=== PATIENT | male | born 1995 | race Caucasian/White ===

== ENCOUNTER 2020-07-31 18:06 | Emergency (ER) | payer BC ==
[2020-07-31 18:11] VITALS: TEMP 98
[2020-07-31] MEDS ORDERED: SODIUM CHLORIDE 0.9% 1,000 ML IV STA (19:20)
[2020-07-31] MEDS ORDERED: ONDANSETRON 4 MG/2 ML VIAL IVP STA (19:22)
--- NOTE | 2020-07-31 19:36 | ED ---
General Adult HPI - General Chief complaint: Abdominal Pain Stated complaint: post Covid chest discomfort Time Seen by Provider: 07/31/20 19:10 Source: patient Mode of arrival: ambulatory Limitations: no limitations - History of Present Illness Initial comments: 25 year-old female patient presents to the emergency department for evaluation of right upper quadrant abdominal pain. Pain has been intermittent over the last year or so. Cramping pain that radiates to back and right shoulder. Associated nausea, no vomiting. Has alternating constipation and diarrhea. States lately the pain is much worse. Was treated for muscle spasm to the right flank in [facility] this year. Reports frequent urination, no hematuria, no dysuria. No previous abdominal surgeries. Not currently taking any medications. - Related Data Previous Rx's Medication Instructions Recorded Ibuprofen [Motrin] 600 mg PO Q8HR PRN #30 tab 07/31/20 Ondansetron [Zofran ODT] 4 mg PO Q8HR PRN #20 tab 07/31/20 Allergies Allergy/AdvReac Type Severity Reaction Status Date / Time No Known Allergies Allergy Verified 07/31/20 18:08 Review of Systems ROS Statement: Those systems with pertinent positive or pertinent negative responses have been documented in the HPI. ROS Other: All systems not noted in ROS Statement are negative. Past Medical History Past Medical History: No Reported History History of Any Multi-Drug Resistant Organisms: None Reported Past Surgical History: Orthopedic Surgery Past Psychological History: No Psychological Hx Reported Smoking Status: Never smoker Past Alcohol Use History: Occasional Past Drug Use History: None Reported General Exam Limitations: no limitations General appearance: alert, in no apparent distress, other (This is a well-developed, well-nourished adult male patient in no acute distress. Vital signs upon presentation are temperature 98.0F, pulse 81, respirations 18, blood pressure 165/92, pulse ox 98% on room air.) Eye exam: Present: normal appearance, PERRL, EOMI. Absent: scleral icterus, conjunctival injection, periorbital swelling ENT exam: Present: normal exam, normal oropharynx, mucous membranes moist Respiratory exam: Present: normal lung sounds bilaterally. Absent: respiratory distress, wheezes, rales, rhonchi, stridor Cardiovascular Exam: Present: regular rate, normal rhythm, normal heart sounds. Absent: systolic murmur, diastolic murmur, rubs, gallop, clicks GI/Abdominal exam: Present: soft, tenderness (Mid epigastric, right upper quadrant), normal bowel sounds. Absent: distended, guarding, rebound, rigid Neurological exam: Present: alert, oriented X3, CN II-XII intact Psychiatric exam: Present: normal affect, normal mood Skin exam: Present: warm, dry, intact, normal color. Absent: rash Course Vital Signs 07/31/20 07/31/20 18:09 21:35 Temperature 98.0 F Pulse Rate 81 66 Respiratory 18 16 Rate Blood Pressure 165/92 154/83 O2 Sat by Pulse 98 99 Oximetry Medical Decision Making - Medical Decision Making 24-year-old male patient presents to the emergency department today for evaluation of right upper quadrant abdominal pain is been intermittent over the last year worsening recently. He does report nausea and bloating. Physical examination did reveal midepigastric and right upper quadrant tenderness. No CVA tenderness. Labs reviewed and are unremarkable. Ultrasound of the right upper quadrant was obtained and did show evidence for slightly distended gallbladder with a slightly thickened wall. He is afebrile. Tolerating oral intake. He'll be discharged follow-up the primary care physician and general surgeon for further evaluation as soon as possible. Return parameters were discussed in detail. He verbalizes understanding and agrees this plan. Case di scussed with my attending Dr. Villagomez. - Lab Data Result diagrams: 07/31/20 19:35 07/31/20 19:35 Lab Results 07/31/20 07/31/20 07/31/20 Range/Units 19:35 19:35 19:35 WBC 8.0 (3.8-10.6) k/uL RBC 5.60 (4.30-5.90) m/uL Hgb 16.8 (13.0-17.5) gm/dL Hct 49.2 (39.0-53.0) % MCV 87.9 (80.0-100.0) fL MCH 30.0 (25.0-35.0) pg MCHC 34.1 (31.0-37.0) g/dL RDW 12.7 (11.5-15.5) % Plt Count 322 (150-450) k/uL MPV 7.4 Neutrophils % (Manual) 44 % Lymphocytes % (Manual) 47 % Monocytes % (Manual) 7 % Eosinophils % (Manual) 2 % Neutrophils # (Manual) 3.52 (1.3-7.7) k/uL Lymphocytes # (Manual) 3.76 (1.0-4.8) k/uL Monocytes # (Manual) 0.56 (0-1.0) k/uL Eosinophils # (Manual) 0.16 (0-0.7) k/uL Nucleated RBCs 0 (0-0) /100 WBC Manual Slide Review Performed Reactive Lymphocytes Present Sodium 141 (137-145) mmol/L Potassium 4.3 (3.5-5.1) mmol/L Chloride 103 (98-107) mmol/L Carbon Dioxide 30 (22-30) mmol/L Anion Gap 8 mmol/L BUN 10 (9-20) mg/dL Creatinine 0.97 (0.66-1.25) mg/dL Est GFR (CKD-EPI)AfAm >90 (>60 ml/min/1.73 sqM) Est GFR (CKD-EPI)NonAf >90 (>60 ml/min/1.73 sqM) Glucose 92 (74-99) mg/dL Calcium 10.4 H (8.4-10.2) mg/dL Total Bilirubin 0.9 (0.2-1.3) mg/dL AST 29 (17-59) U/L ALT 21 (4-49) U/L Alkaline Phosphatase 63 (38-126) U/L Total Protein 8.1 (6.3-8.2) g/dL Albumin 5.1 H (3.5-5.0) g/dL Lipase 88 (23-300) U/L Urine Color Colorless Urine Appearance Clear (Clear) Urine pH 7.0 (5.0-8.0) Ur Specific [place] 1.003 (1.001-1.035) Urine Protein Negative (Negative) Urine Glucose (UA) Negative (Negative) Urine Ketones Negative (Negative) Urine Blood Negative (Negative) Urine Nitrite Negative (Negative) Urine Bilirubin Negative (Negative) Urine Urobilinogen <2.0 (<2.0) mg/dL Ur Leukocyte Esterase Negative (Negative) - Radiology Data Radiology results: report reviewed, image reviewed Ultrasound of the right upper quadrant is obtained. Report is reviewed in its entirety. Impression by Dr. Wong shows no gallstones or dilated ducts. No focal defect. No evidence of pancreatic mass. Specifically the gallbladder there were fluids seen. Appears distended measuring 10.4 cm in length. Wall appears slightly thickened at 0.38cm. Disposition Clinical Impression: Abdominal pain Disposition: HOME SELF-CARE Condition: Good Instructions (If sedation given, give patient instructions): Low Fat Diet (ED), Abdominal Pain (ED) Additional Instructions: Avoid fatty foods. Take medications as directed for pain. Use zofran for nausea as needed. Follow-up with your [place] line tender for further evaluation. Call surgeon for an appointment. Follow up with her primary care physician for recheck in 1-2 days. Return for any new, worsening, or concerning symptoms. Prescriptions: Ibuprofen [Motrin] 600 mg PO Q8HR PRN #30 tab PRN Reason: Pain Ondansetron [Zofran ODT] 4 mg PO Q8HR PRN #20 tab PRN Reason: Nausea Is patient prescribed a controlled substance at d/c from ED?: No Referrals: Hans Pruett MD [Primary Care Provider] - 1-2 days Yamil Hassan MD [STAFF PHYSICIAN] - 1-2 days Time of Disposition: 21:14
[2020-07-31] MEDS ORDERED: MORPHINE SULFATE 4 MG/ML SYRINGE IVP STA (19:43)
[2020-07-31 20:40] LABS: Appearance,Urine Clear (Clear); Bilirubin,Urine Negative (Negative); Blood,Urine Negative (Negative); Color,Urine Colorless; Glucose,Urine (UA) Negative (Negative); Ketones,Urine Negative (Negative); Leukocyte Esterase,Urine Negative (Negative); Nitrite,Urine Negative (Negative); Protein,Urine Negative (Negative); Specific Gravity,Urine 1.003 (1.001-1.035); Urobilinogen,Urine <2.0 mg/dL (<2.0)
--- NOTE | 2020-07-31 20:48 | US ---
EXAMINATION TYPE: US abdomen limited DATE OF EXAM: 07/31/2020 COMPARISON: NONE CLINICAL HISTORY: RUQ pain. RUQ pain. EXAM MEASUREMENTS: Liver Length: 18.1 cm Gallbladder Wall: 0.38 cm CBD: 0.37 cm Right Kidney: 12.2 x 6.2 x 4.5 cm Limited due to gas. Pancreas: Slightly limited due to gas. Liver: Measures enlarged. Gallbladder: Folds seen. Appears distended measuring 10.4 cm in length. Wall appears slightly thick ened at 0.38 cm. Evidence for sonographic Sewell's sign: No CBD: Portions seen appear wnl. Right Kidney: No hydronephrosis or masses seen. Measures upper limits of normal versus minimally enl arged. IMPRESSION: No gallstones or dilated ducts. No focal liver defect. No evidence of pancreatic mass.
[2020-07-31 20:50] LABS: HCT 49.2 % (39.0-53.0); HGB 16.8 gm/dL (13.0-17.5); MCHC 34.1 g/dL (31.0-37.0); MCV 87.9 fL (80.0-100.0); Mean Platelet Volume 7.4; Platelet Count 322 k/uL (150-450); RDW 12.7 % (11.5-15.5)
[2020-07-31 20:51] LABS: ALT 21 U/L (4-49); AST 29 U/L (17-59); African American GFR (CKD) >90 (>60 ml/min/1.73 sqM); Albumin 5.1 g/dL (3.5-5.0); Alkaline Phosphatase 63 U/L (38-126); Anion Gap 8 mmol/L; Blood Urea Nitrogen 10 mg/dL (9-20); Calcium 10.4 mg/dL (8.4-10.2); Carbon Dioxide 30 mmol/L (22-30); Chloride 103 mmol/L (98-107); Glucose 92 mg/dL (74-99); Lipase 88 U/L (23-300); Non-African American GFR(CKD) >90 (>60 ml/min/1.73 sqM); Potassium 4.3 mmol/L (3.5-5.1); Sodium 141 mmol/L (137-145); Total Bilirubin 0.9 mg/dL (0.2-1.3); Total Protein 8.1 g/dL (6.3-8.2)
[2020-07-31] MEDS ORDERED: ACET/COD 300 MG/30 MG STARTER PACK 6 TAB BTL PO STA (21:14)
[2020-07-31 21:30] LABS: Eosinophils # (M) 0.16 k/uL (0-0.7); Lymphocytes # (M) 3.76 k/uL (1.0-4.8); Monocytes # (M) 0.56 k/uL (0-1.0); Neutrophils # (M) 3.52 k/uL (1.3-7.7); Neutrophils % (M) 44 %; Nucleated Red Blood Cells 0 /100 WBC (0-0); Total Cells Counted 100
[2020-07-31 21:31] LABS: Reactive Lymphocytes Present
[2020-07-31 21:39] VITALS: BP 154/83; PULSE 66; RESP 16
== END 2020-07-31 21:43 | disposition home or self-care (01) ==
LOC: EC 18:06
DX: R10.11 Right upper quadrant pain (principal); R07.89 Other chest pain; R35.0 Frequency of micturition; R11.0 Nausea; R14.0 Abdominal distension (gaseous); Z79.899 Other long term (current) drug therapy
CPT/HCPCS: 36415; 80053; 83690; 85025; 81003; 76705; 99285; 96374; 96375; 96361; J2270; J2405

== ENCOUNTER 2020-12-23 07:07 | Emergency (ER) | payer BC ==
[2020-12-23 07:24] VITALS: RESP 16; TEMP 98.6
[2020-12-23] MEDS ORDERED: KETOROLAC 15 MG/ML 1 ML VIAL IVP STA (07:33)
[2020-12-23] MEDS ORDERED: SODIUM CHLORIDE 0.9% 1,000 ML IV STA (07:33)
--- NOTE | 2020-12-23 07:46 | ED ---
Abdominal Pain HPI - General Chief Complaint: Abdominal Pain Stated Complaint: post op gallbladder pain Time Seen by Provider: 12/23/20 07:26 Source: patient, RN notes reviewed Mode of arrival: ambulatory Limitations: no limitations - History of Present Illness Initial Comments: Patient is a 25-year-old male that presents to emergency department complaining of right upper quadrant abdominal pain with radiation to his right scapula. He notes that he is status post cholecystectomy. He notes he got removed in the middle of August by a surgeon that is affiliated with [place] [facility]. Patient states that shortly after surgery he had a few episodes of pain worse with certain foods that went away on its own. He notes that he has had li ke a constant dull ache pain is approximate 5 out of 10. He denied any alleviating factors for this. He did note that he started to get concerned because he is having more the sharp pain incidents that go away after 5-10 minutes. He denied taking any medication for the pain. He notes that he usu ally takes about 5-10 minutes for each of these attacks. He noted he has not followed up with his surgeon since his postsurgical follow-up appointment 2 weeks after. He was otherwise a well-appearing 25-year-old male in no apparent distress while sitting up in bed during the exam interview. He denied any chest pain shortness breath headache nausea vomiting diarrhea constipation fever fatigue chills. - Related Data Previous Rx's Medication Instructions Recorded Ibuprofen [Motrin] 600 mg PO Q8HR PRN #30 tab 07/31/20 Ondansetron [Zofran ODT] 4 mg PO Q8HR PRN #20 tab 07/31/20 Allergies Allergy/AdvReac Type Severity Reaction Status Date / Time No Known Allergies Allergy Verified 12/23/20 07:24 Review of Systems ROS Statement: Those systems with pertinent positive or pertinent negative responses have been documented in the HPI. ROS Other: All systems not noted in ROS Statement are negative. Past Medical History Past Medical History: No Reported History History of Any Multi-Drug Resistant Organisms: None Reported Past Surgical History: Cholecystectomy, Orthopedic Surgery Past Psychological History: No Psychological Hx Reported Smoking Status: Never smoker Past Alcohol Use History: Occasional Past Drug Use History: None Reported General Exam Limitations: no limitations General appearance: alert, in no apparent distress Head exam: Present: atraumatic, normocephalic, normal inspection Eye exam: Present: normal appearance, PERRL, EOMI. Absent: scleral icterus, conjunctival injection, periorbital swelling ENT exam: Present: normal exam, mucous membranes moist Neck exam: Present: normal inspection Respiratory exam: Present: normal lung sounds bilaterally. Absent: respiratory distress, wheezes, rales, rhonchi, stridor Cardiovascular Exam: Present: regular rate, normal rhythm, normal heart sounds. Absent: systolic murmur, diastolic murmur, rubs, gallop, clicks GI/Abdominal exam: Present: soft, tenderness (Very minimal right upper quadrant tenderness to deep palpation.), normal bowel sounds. Absent: distended, guarding, rebound, rigid Extremities exam: Present: normal inspection, full ROM, normal capillary refill. Absent: tenderness, pedal edema, joint swelling, calf tenderness Neurological exam: Present: alert, oriented X3 Psychiatric exam: Present: normal affect, normal mood Skin exam: Present: warm, dry, intact, normal color. Absent: rash Course Vital Signs 12/23/20 07:21 Temperature 98.6 F Pulse Rate 77 Respiratory 16 Rate Blood Pressure 147/99 O2 Sat by Pulse 97 Oximetry Medical Decision Making - Medical Decision Making 25-year-old male complaining of right upper quadrant pain, status post cholecystectomy in August. Labs, 15 mg of Toradol, 1 L normal saline, KUB, ultrasound of the gallbladder ordered. X-ray imaging overall nonobstructive bowel gas pattern. Ultrasound negative for any new findings. Labs unremarkable. 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 Case discussed with Dr. Hill, patient discharge home with follow-up to his primary care and surgeon as needed. - Lab Data Result diagrams: 12/23/20 07:53 12/23/20 07:53 Lab Results 12/23/20 12/23/20 12/23/20 Range/Units 07:53 07:53 07:53 WBC 9.3 (3.8-10.6) k/uL RBC 5.20 (4.30-5.90) m/uL Hgb 16.0 (13.0-17.5) gm/dL Hct 46.0 (39.0-53.0) % MCV 88.4 (80.0-100.0) fL MCH 30.8 (25.0-35.0) pg MCHC 34.8 (31.0-37.0) g/dL RDW 11.9 (11.5-15.5) % Plt Count 312 (150-450) k/uL MPV 7.6 Neutrophils % 43 % Lymphocytes % 45 % Monocytes % 7 % Eosinophils % 2 % Basophils % 1 % Neutrophils # 4.0 (1.3-7.7) k/uL Lymphocytes # 4.2 (1.0-4.8) k/uL Monocytes # 0.6 (0-1.0) k/uL Eosinophils # 0.2 (0-0.7) k/uL Basophils # 0.1 (0-0.2) k/uL Manual Slide Review Performed RBC Morphology Normal Sodium 137 (137-145) mmol/L Potassium 3.9 (3.5-5.1) mmol/L Chloride 103 (98-107) mmol/L Carbon Dioxide 27 (22-30) mmol/L Anion Gap 7 mmol/L BUN 14 (9-20) mg/dL Creatinine 0.86 (0.66-1.25) mg/dL Est GFR (CKD-EPI)AfAm >90 (>60 ml/min/1.73 sqM) Est GFR (CKD-EPI)NonAf >90 (>60 ml/min/1.73 sqM) Glucose 100 H (74-99) mg/dL Calcium 10.0 (8.4-10.2) mg/dL Total Bilirubin 1.0 (0.2-1.3) mg/dL AST 25 (17-59) U/L ALT 21 (4-49) U/L Alkaline Phosphatase 60 (38-126) U/L Total Protein 7.5 (6.3-8.2) g/dL Albumin 4.7 (3.5-5.0) g/dL Amylase 55 (30-110) U/L Lipase 67 (23-300) U/L Urine Color Light Yellow Urine Appearance Clear (Clear) Urine pH 6.5 (5.0-8.0) Ur Specific [place] 1.010 (1.001-1.035) Urine Protein Negative (Negative) Urine Glucose (UA) Negative (Negative) Urine Ketones Negative (Negative) Urine Blood Negative (Negative) Urine Nitrite Negative (Negative) Urine Bilirubin Negative (Negative) Urine Urobilinogen <2.0 (<2.0) mg/dL Ur Leukocyte Esterase Negative (Negative) - Radiology Data Radiology results: report reviewed, image reviewed KUB: Overall nonobstructive bowel gas pattern Ultrasound of the gallbladder: Interval cholecystectomy. No new findings evident. Disposition Clinical Impression: Postcholecystectomy syndrome Disposition: HOME SELF-CARE Condition: Stable Instructions (If sedation given, give patient instructions): Acute Abdominal Pain (ED) Additional Instructions: Please return to the Emergency Department if symptoms worsen or any other concerns. Follow-up with primary care 1-2 days. Follow-up with surgeon as needed. Take Tylenol Motrin as needed for pain. Is patient prescribed a controlled substance at d/c from ED?: No Referrals: Hans Pruett MD [Primary Care Provider] - 1-2 days Time of Disposition: 09:03
[2020-12-23 08:00] LABS: Appearance,Urine Clear (Clear); Bilirubin,Urine Negative (Negative); Blood,Urine Negative (Negative); Color,Urine Light Yellow; Glucose,Urine (UA) Negative (Negative); Ketones,Urine Negative (Negative); Leukocyte Esterase,Urine Negative (Negative); Nitrite,Urine Negative (Negative); PH, Urine 6.5 (5.0-8.0); Protein,Urine Negative (Negative); Urobilinogen,Urine <2.0 mg/dL (<2.0)
[2020-12-23 08:01] LABS: Basophils # (A) 0.1 k/uL (0-0.2); Basophils % (A) 1 %; Eosinophils # (A) 0.2 k/uL (0-0.7); Eosinophils % (A) 2 %; Lymphocytes # (A) 4.2 k/uL (1.0-4.8); Lymphocytes % (A) 45 %; MCH 30.8 pg (25.0-35.0); MCHC 34.8 g/dL (31.0-37.0); MCV 88.4 fL (80.0-100.0); Mean Platelet Volume 7.6; Monocytes # (A) 0.6 k/uL (0-1.0); Monocytes % (A) 7 %; Neutrophils % (A) 43 %; Platelet Count 312 k/uL (150-450); RDW 11.9 % (11.5-15.5); WBC 9.3 k/uL (3.8-10.6)
[2020-12-23 08:21] LABS: ALT 21 U/L (4-49); AST 25 U/L (17-59); African American GFR (CKD) >90 (>60 ml/min/1.73 sqM); Albumin 4.7 g/dL (3.5-5.0); Alkaline Phosphatase 60 U/L (38-126); Amylase 55 U/L (30-110); Anion Gap 7 mmol/L; Blood Urea Nitrogen 14 mg/dL (9-20); Carbon Dioxide 27 mmol/L (22-30); Chloride 103 mmol/L (98-107); Glucose 100 mg/dL (74-99); Lipase 67 U/L (23-300); Non-African American GFR(CKD) >90 (>60 ml/min/1.73 sqM); Potassium 3.9 mmol/L (3.5-5.1); Sodium 137 mmol/L (137-145); Total Protein 7.5 g/dL (6.3-8.2)
--- NOTE | 2020-12-23 08:40 | XR ---
EXAMINATION TYPE: XR KUB DATE OF EXAM: 12/23/2020 8:02 AM CLINICAL HISTORY: Pain and vomiting. TECHNIQUE: Two Upright KUB images of the abdomen are obtained. COMPARISON: None. FINDINGS: Gas is seen in nondistended stomach bubble. Scattered gas is seen in non-distended small reshma wel loops. Gas and fecal material is seen in non-distended colon. There is no visceromegaly, pneumope ritoneum, or abnormal calcification appreciated. The lung bases are clear and the osseous structures are intact. IMPRESSION: Overall nonobstructive bowel gas pattern.
--- NOTE | 2020-12-23 08:42 | US ---
EXAMINATION TYPE: US gallbladder DATE OF EXAM: 12/23/2020 COMPARISON: US abdomen Limited July 31, 2020 CLINICAL HISTORY: post cholecystectomy pain. Pt states RUQ and chest pain/ [facility] in august 2020 EXAM MEASUREMENTS: Liver Length: 18.6 cm CBD: 0.3 cm Right Kidney: 11.7 x 3.6 x 5.2 cm Pancreas: wnl Liver: Size upper limits of normal, otherwise appeared wnl Gallbladder: Surgically absent Evidence for sonographic Sewell's sign: No CBD: wnl Right Kidney: wnl No abnormality visualized to account for pt's symptoms IMPRESSION: Interval cholecystectomy. No new findings are evident.
[2020-12-23 09:25] VITALS: BP 126/75; PULSE 53
== END 2020-12-23 09:25 | disposition home or self-care (01) ==
LOC: EC 07:07
DX: K91.5 Postcholecystectomy syndrome (principal); Z90.49 Acquired absence of other specified parts of digestive tract
CPT/HCPCS: 99284; 96374; 96361; 36415; 80053; 82150; 83690; 85025; 81003; 74018; 76705; J1885

== ENCOUNTER → 2022-06-27 | Outpatient (CLI) | payer OTHER ==
--- NOTE | 2022-06-27 17:24 | CT ---
EXAMINATION TYPE: CT pelvis w con DATE OF EXAM: 06/27/2022 COMPARISON: Pelvic and left hip x-ray May 22, 2022. HISTORY: Fall late April, inguinal hernia CT DLP: 917.2 mGycm Automated exposure control for dose reduction was used. CONTRAST: Performed CT pelvis with oral and with IV Contrast, patient injected with 50cc mL of Isovue 300. FINDINGS: Visualized portion of the liver, pancreas, spleen, and both kidneys is unremarkable. Oral contrast do es not reach colonic level. There is no suspicious small or large bowel dilatation. Urinary bladder a ppears within normal limits. Prostate gland is unremarkable. No free fluid in pelvis or greater than 1 cm pelvic adenopathy is seen. There is no significant inguinal hernia or groin adenopathy identified bilaterally. Muscle bulk in th e bilateral thighs is symmetric and felt within normal limits. Visualized osseous structures are inta ct. IMPRESSION: No groin or inguinal hernia seen bilaterally. Unremarkable study.
== END | disposition home or self-care (01) ==
LOC: RADCTMAIN 14:38
PROVIDERS: ATTEND Surgery
DX: K40.90 Unilateral inguinal hernia, without obstruction or gangrene, not specified as recurrent (principal)
CPT/HCPCS: 72193; Q9967